=== PATIENT | male | born 1970 | race Hispanic/Latino ===

== ENCOUNTER 2018-08-14 18:11 | Emergency (ER) | payer OTHER ==
[2018-08-14 18:23] VITALS: O2SAT 97
--- NOTE | 2018-08-14 19:29 | ED PDOC ---
HPI: General Adult Time Seen by Provider: 08/14/18 19:09 Chief Complaint (Nursing): GI Problem Chief Complaint (Provider): GI problem History Per: Patient History/Exam Limitations: no limitations Onset/Duration Of Symptoms: Days (x3) Additional Complaint(s): 47 year old male presents to the ED complaining of bloody stool. Patient reports 3 days ago, he woke up feeling nauseated and had gone to the bathroom where he had diarrhea and severe cramps. Patient lied on the floor and 2 hours later, had diarrhea and severe cramping again. Later that day, patient had a bowel movement with blood and had consulted his father who is his PMD in [place]. Father performed a rectal exam but did not find anything. Patient states he has chills but denies pain, recent travel, or fever. He denies pain right now and states there was no blood in stool today. He indicates his brother had ulcerative colitis. PMD: Father Past Medical History Reviewed: Historical Data, Nursing Documentation, Vital Signs Vital Signs: Last Vital Signs Temp 99 F 08/14/18 18:21 Pulse 106 H 08/14/18 18:21 Resp 20 08/14/18 18:21 BP 164/108 H 08/14/18 18:21 Pulse Ox 97 08/14/18 18:21 - Medical History PMH: No Chronic Diseases - Surgical History Surgical History: Hernia Repair - Family History Family History: States: Other Other Family History: Ulcerative colitis (Brother) - Allergies Allergies/Adverse Reactions: Allergies Allergy/AdvReac Type Severity Reaction Status Date / Time shrimp Allergy RASH Verified 08/14/18 18:21 Review of Systems ROS Statement: Except As Marked, All Systems Reviewed And Found Negative Constitutional: Positive for: Chills. Negative for: Fever Gastrointestinal: Positive for: Diarrhea, Hematochezia. Negative for: Vomiting Physical Exam - Reviewed Nursing Documentation Reviewed: Yes Vital Signs Reviewed: Yes - Physical Exam Appears: Positive for: Non-toxic, No Acute Distress Head Exam: Positive for: ATRAUMATIC, NORMOCEPHALIC Skin: Positive for: Normal Color, Warm, Dry Eye Exam: Positive for: Normal appearance ENT: Positive for: Normal ENT Inspection Neck: Positive for: Normal, Painless ROM Cardiovascular/Chest: Positive for: Regular Rate, Rhythm. Negative for: Murmur Respiratory: Positive for: Normal Breath Sounds. Negative for: Wheezing, Respiratory Distress Gastrointestinal/Abdominal: Positive for: Normal Exam, Soft. Negative for: Tenderness Back: Positive for: Normal Inspection. 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 Negative for: Motor/Sensory Deficits - Laboratory Results Result Diagrams: 08/14/18 20:27 08/14/18 20:27 - ECG O2 Sat by Pulse Oximetry: 97 (RA) Pulse Ox Interpretation: Normal Medical Decision Making Medical Decision Making: Initial Impression: Diarrhea and bloody stool Differentials include colitis, infectious colitis, ulcerative colitis, diverticulitis; other conditions considered but not included Initial Plan: --Type and screen --CT abd/pelvis --BMP --CBC --PTT --Prothrombin time --Stool culture 22:47 CT abd/pelvis Impression: No acute intra-abdominal or pelvic abnormality. Scribe Attestation: Documented by Yazan Montenegro acting as a scribe for Immanuel Hsu MD. Provider Scribe Attestation: All medical record entries made by the Scribe were at my direction and personally dictated by me. I have reviewed the chart and agree that the record accurately reflects my personal performance of the history, physical exam, medical decision making, and the department course for this patient. I have also personally directed, reviewed, and agree with the discharge instructions and disposition. Disposition - Clinical Impression Clinical Impression: Bloody stool, Diarrhea - Patient ED Disposition Is Patient to be Admitted: No Doctor Will See Patient In The: Office Counseled Patient/Family Regarding: Studies Performed, Diagnosis, Need For Followup - Disposition Referrals: Misael Norman MD, PhD [Staff Provider] - Disposition: Routine/Home Disposition Time: 23:19 Condition: GOOD Additional Instructions: CHARLA TOVAR, thank you for letting us take care of you today. Your provider was Immanuel Hsu MD and you were treated for POSS RECTAL BLEEDING. The emergency medical care you received today was directed at your acute symptoms. If you were prescribed any medication, please fill it and take as directed. It may take several days for your symptoms to resolve. Return to the Emergency Department if your symptoms worsen, do not improve, or if you have any other problems. Please contact your doctor or call one of the physicians/clinics you have been referred to that are listed on the Patient Visit Information form that is included in your discharge packet. Bring any paperwork you were given at discharge with you along with any medications you are taking to your follow up visit. Our treatment cannot replace ongoing medical care by a primary care provider outside of the emergency department. Thank you for allowing the [email or web address] team to be part of your care today. If you had an X-Ray or CT scan: A Radiologist will review the ED reading if any change in treatment is needed we will contact you. If you had a blood, urine, or wound culture: It will take several days for the results, if any change in treatment is needed we will contact you. If you had an STI test: It will take 48 hours for the results. Please call after 1 week if you have not heard back. Instructions: Bloody Stools, Adult (DC)
[2018-08-14 20:41] LABS: BASO % 0.2 % (0.0-2.0); EOS # 0.1 K/uL (0.0-0.7); EOS % 0.8 % (0.0-4.0); HEMOGLOBIN 15.3 g/dL (12.0-18.0); LYMPH # 1.8 K/uL (1.0-4.3); LYMPH % 22.9 % (20.0-40.0); MEAN CELL VOLUME 88.1 fl (80.0-94.0); MEAN CORPUSCULAR HEMOGLOBIN 29.9 pg (27.0-31.0); MEAN PLATELET VOLUME 7.3 fl (7.2-11.7); MONO # 0.8 K/uL (0.0-0.8); MONO % 9.9 % (0.0-10.0); NEUT # 5.1 K/uL (1.8-7.0); NEUT % 66.2 % (50.0-75.0); NRBC % 0.1 % (0.0-0.0); RBC 5.11 Mil/uL (4.40-5.90); RED CELL DISTRIBUTION WIDTH 12.9 % (11.5-14.5); WHITE BLOOD COUNT 7.7 K/uL (4.8-10.8)
[2018-08-14 20:49] LABS: BLOOD UREA NITROGEN 16 mg/dl (9-20); CALCIUM 9.8 mg/dL (8.4-10.2); GFR NON-AFRICAN AMERICAN > 60
[2018-08-14 20:56] LABS: PROTHROMBIN TIME 10.9 Seconds (9.8-13.1)
[2018-08-14 20:59] LABS: PARTIAL THROMBOPLASTIN TIME 31.2 Seconds (25.6-37.1)
[2018-08-14] MEDS ORDERED: Sodium Chloride 0.9% 50 ML IV ONE (21:47)
[2018-08-14] MEDS ORDERED: Iodixanol 320 MG/ML 100 ML BOTTLE IV ONE (21:47)
[2018-08-15 00:03] VITALS: BP 136/82; PULSE 82; RESP 18; TEMP 99.2
--- NOTE | 2018-08-15 17:41 | CT ---
Date of service: 08/14/2018 PROCEDURE: CT Abdomen and Pelvis with contrast HISTORY: bloody stool diarrhea COMPARISON: None. TECHNIQUE: Contrast dose: 95 mL of Visipaque 320. Axial and reformatted coronal and sagittal CT images of the abdomen and pelvis were obtained after IV contrast administration. Radiation dose: Total exam DLP = 719.26 mGy-cm. This CT exam was performed using one or more of the following dose reduction techniques: Automated exposure control, adjustment of the mA and/or kV according to patient size, and/or use of iterative reconstruction technique. FINDINGS: LOWER THORAX: Unremarkable. LIVER: Unremarkable. No gross lesion or ductal dilatation. GALLBLADDER AND BILE DUCTS: Unremarkable. PANCREAS: Unremarkable. No gross lesion or ductal dilatation. SPLEEN: Unremarkable. ADRENALS: Unremarkable. No mass. KIDNEYS AND URETERS: Unremarkable. No hydronephrosis. No solid mass. VASCULATURE: Unremarkable. No aortic aneurysm. BOWEL: Unremarkable. No obstruction. No gross mural thickening. APPENDIX: Normal appendix. PERITONEUM: Unremarkable. No free fluid. No free air. LYMPH NODES: Unremarkable. No enlarged lymph nodes. BLADDER: Unremarkable. REPRODUCTIVE: Unremarkable. BONES: No acute fracture. OTHER FINDINGS: None. IMPRESSION: No evidence of acute pathology or suspicious lesion in the abdomen and pelvis. [facility]
== END 2018-08-15 00:04 | disposition home or self-care (01) ==
LOC: H.ER 18:11
DX: R19.7 Diarrhea, unspecified (principal); K92.1 Melena
CPT/HCPCS: 74177; 80048; 85025; 85610; 85730; 86850; 86900; 99283; G0328; Q9967